=== PATIENT | male | born 1960 | race Caucasian/White ===

== ENCOUNTER 2023-08-24 18:54 | Emergency (ER) | payer OTHER, BC ==
[2023-08-24 19:04] VITALS: BP 131/69; PULSE 84; RESP 19; TEMP 99.4; BMI 26.6
== END 2023-08-24 21:57 | disposition home or self-care (01) ==
LOC: JER 18:54
DX: R51.9 Headache, unspecified (principal); M54.2 Cervicalgia; M25.511 Pain in right shoulder; M25.521 Pain in right elbow; M25.522 Pain in left elbow; W01.198A Fall on same level from slipping, tripping and stumbling with subsequent striking against other object, initial encounter
CPT/HCPCS: 70150-TC-FY; 70450-TC; 72125-TC; 73030-TC-RT-FY; 73070-TC-LT-FY; 73070-TC-RT-FY; 99284-25